=== PATIENT | female | born 1930 | race Caucasian/White ===

== ENCOUNTER 2017-10-28 12:15 | Emergency (ER) | payer MEDICARE ==
[2017-10-28 12:42] LABS: BASO % 0.1 % (0-6); EOS % 0.9 % (0-6); GRAN % 70.4 % (47-80); HEMATOCRIT 46.1 % (35.0-47.0); LYMPH % 20.4 % (16-45); MEAN CELL VOLUME 86.3 fl (81-97); MEAN CORPUSCULAR HEMOGLOBIN 28.1 pg (27-33); MEAN CORPUSCULAR HGB CONC 32.5 g/dl (32-36); MEAN PLATELET VOLUME 10.5 fl (7.4-10.4); MONO % 8.2 % (0-9); PLATELET COUNT 299 K/uL (130-400); RED BLOOD COUNT 5.34 M/uL (3.80-5.40); RED CELL DISTRIBUTION WIDTH 13.7 % (11.5-14.5); WHITE BLOOD COUNT W/O DIFF 7.7 K/uL (4.2-12.2)
--- NOTE | 2017-10-28 12:47 | Emergency Department Record ---
History of Present Illness - General Chief complaint: Weakness Stated complaint: LT SIDE WEAKNESS Time Seen by Provider: 10/28/17 12:31 Source: Patient, RN notes reviewed Mode of Arrival: Ambulatory - History of Present Illness Initial comments: left arm and left leg weakness and left facial droop which started two days ago. PMH hypertension and her Primary is Kya Seals but hasn't seen her yet. Onset/Timin -: Days(s) Location: [facility] Severity: Mild Consistency: Constant Improves with: None Worsens with: None Associated Symptoms: Denies other symptoms - [place] Coma Scale Eye Response: (4) Open spontaneously Motor Response: (6) Obeys commands Verbal Response: (5) Oriented [place] Total: 15 - Symptoms of Stroke Onset of Symptoms Date: 10/26/17 Symptoms of stroke: Muscle Weakness - Related Data Allergies Allergy/AdvReac Type Severity Reaction Status Date / Time enalapril maleate Allergy Severe ANAPHYLAXIS Verified 10/28/17 12:18 [From Vasotec] enalaprilat dihydrate Allergy Severe ANAPHYLAXIS Verified 10/28/17 12:18 [From Vasotec] Travel Screening - Travel/Exposure Within Last 30 Days Have you traveled within the last 30 days?: No - Travel/Exposure Within Last Year Have you traveled outside the [place] in the last year?: No - Additonal Travel Details Have you been exposed to anyone with a communicable illness?: No - Travel Symptoms Symptom Screening: None Review of Systems Reviewed: No additional complaints except as noted below Constitutional: Reports: As per HPI, Weakness (left arm and left leg). Denies: Chills, Fever, Malaise, Night sweats, Weight change Eyes: Reports: As per HPI. Denies: Eye discharge, Eye pain, Photophobia, Vision change ENT: Reports: As per HPI. Denies: Congestion, Dental pain, Ear pain, Epistaxis , Hearing loss, Throat pain Respiratory: Reports: As per HPI. Denies: Cough, Dyspnea, Hemoptysis, Stridor, Wheezes Cardiovascular: Reports: As per HPI. Denies: Arrhythmia, Chest pain, Dyspnea on exertion, Edema, Murmurs, Orthopnea, Palpitations, Paroxysmal nocturnal dyspnea, Rheumatic Fever, Syncope Endocrine: Reports: As per HPI. Denies: Fatigue, Heat or cold intolerance, Polydipsia, Polyuria Gastrointestinal: Reports: As per HPI. Denies: Abdominal pain, Constipation, Diarrhea, Hematemesis, Hematochezia, Melena, Nausea, Vomiting Genitourinary: Reports: As per HPI. Denies: Abnormal menses, Discharge, Dyspareunia, Dysuria, Frequency, Hematuria, Incontinence, Retention, Urgency Musculoskeletal: Reports: As per HPI. Denies: Arthralgia, Back pain, Gout, Joint swelling, Myalgia, Neck pain Skin: Reports: As per HPI. Denies: Bruising, Change in color, Change in hair/ nails, Lesions, Pruritus, Rash Neurological: Reports: As per HPI. Denies: Abnormal gait, Confusion, Headache, Numbness, Paresthesias, Seizure, Tingling, Tremors, Vertigo, Weakness Psychiatric: Reports: As per HPI. Denies: Anxiety, Auditory hallucinations, Depression, Homicidal thoughts, Suicidal thoughts, Visual hallucinations Hematological/Lymphatic: Reports: As per HPI. Denies: Anemia, Blood Clots, Easy bleeding, Easy bruising, Swollen glands Past Medical History - SOCIAL HISTORY Smoking Status: Never smoker Alcohol Use: None Drug Use: None - RESPIRATORY Hx Respiratory Disorders: No - CARDIOVASCULAR Hx Cardio Disorders: Yes Hx Hypertension: Yes Comment:: murmur - NEURO Hx Neuro Disorders: No - GI Hx GI Disorders: No - Hx Genitourinary Disorders: No - ENDOCRINE Hx Endocrine Disorders: No - MUSCULOSKELETAL Hx Musculoskeletal Disorders: Yes Hx Arthritis: Yes (generalized) - PSYCH Hx Psych Problems: No - HEMATOLOGY/ONCOLOGY Hx Hematology/Oncology Disorders: No Family Medical History Any Significant Family History?: Yes Hx Cancer: Mother, Grandparents Hx Heart Disease: Mother, Children Physical Exam - General General Appearance: Alert, Oriented x3, Cooperative, No acute distress - Head Head exam: Other (left facial droop) - Eye Eye exam: Normal appearance, PERRL Pupils: Normal accommodation - ENT ENT exam: Normal exam, Mucous membranes moist, Normal external ear exam, Normal orophraynx, TM's normal bilaterally Ear exam: Normal external inspection. negative: External canal tenderness Nasal Exam: Normal inspection. negative: Discharge, Sinus tenderness Mouth exam: Normal external inspection, Tongue normal Teeth exam: Normal inspection. negative: Dental caries Throat exam: Normal inspection. negative: Tonsillar erythema, Tonsillar exudate - Neck Neck exam: Normal inspection, Full ROM. negative: Tenderness - Respiratory Respiratory exam: Normal lung sounds bilaterally. negative: Respiratory distress - Cardiovascular Cardiovascular Exam: Regular rate, Normal rhythm, Normal heart sounds - GI/Abdominal GI/Abdominal exam: Soft, Normal bowel sounds. negative: Tenderness - Rectal Rectal exam: Deferred - exam: Deferred - Extremities Extremities exam: Normal inspection, Full ROM, Normal capillary refill, Other ( weakness left arm and leg). negative: Tenderness - Back Back exam: Reports: Normal inspection, Full ROM. Denies: Muscle spasm, Rash noted, Tenderness - Neurological Neurological exam: Alert, Normal gait, Oriented X3, Reflexes normal - Psychiatric Psychiatric exam: Normal affect, Normal mood - Skin Skin exam: Dry, Intact, Normal color, Warm Course Vital Signs 10/28/17 12:20 Temperature 98.2 F Pulse Rate 73 Respiratory 20 Rate Blood Pressure 203/113 Pulse Ox 97 - Reevaluation(s) Reevaluation #1: discussed case with Dr. Greer her NIH now is 2 left facial droop and slurred speech 10/28/17 14:33 Reevaluation #2: Transfer to [facility] to Dr. Greer 10/28/17 14:34 10/28/17 14:34 Medical Decision Making - Data Complexity MDM Data: Labs Ordered and/or Reviewed, X-Ray Ordered and/or Reviewed (chest xray small left pleural effussion, CT head No acute bleed or signs of infarction ) - Lab Data Result diagrams: 10/28/17 12:25 10/28/17 12:25 Disposition Clinical Impression: CVA (cerebral vascular accident) Qualifiers: CVA mechanism: unspecified Qualified Code(s): I63.9 - Cerebral infarction, unspecified Disposition: Acute Care Hospital Transfer Condition: (2) Stable Forms: Patient Portal Access Time of Disposition: 14:35 Quality - Quality Measures Quality Measures: N/A - Blood Pressure Screening Does Patient Have Any of the Following: No, Active Dx of HTN Blood Pressure Classification: Hypertensive Reading Systolic Measurement: 203 Diastolic Measurement: 113 Screening for High Blood Pressure: Patient Exclusion, Hx of HTN [G9744]
[2017-10-28 13:08] LABS: GLUCOSE,RANDOM 123 mg/dL (74-109)
[2017-10-28 13:09] LABS: BLOOD UREA NITROGEN 13 mg/dL (8-23); CREATININE 0.5 mg/dL (0.5-0.9); EST GLOMERULAR FILTRATION RATE > 60 mL/min
--- NOTE | 2017-10-29 08:55 | RADIOLOGY REPORT ---
EXAM: CHEST, TWO VIEWS HISTORY: WEAKNESS LEFT SIDE OF BODY FOR TWO DAYS. TECHNIQUE: PA and lateral views of the chest were obtained. Comparison: None. Hand dominance: Right. FINDINGS: The heart size is at about the upper limits of normal. Small left pleural effusion. No definite acute infiltrate is seen and no pneumothorax evident. There is probably some minor streaky atelectasis or infiltrate in the left base as well. There is a mild kyphoscoliosis convexed to the right. IMPRESSION: 1. SMALL LEFT PLEURAL EFFUSION WITH SOME MINOR STREAKY ATELECTASIS OR INFILTRATE IN THE LEFT BASE. 2. THE HEART SIZE IS AT ABOUT THE UPPER LIMITS OF NORMAL. 3. THORACIC CURVE TO THE RIGHT WITH SOMEWHAT EXAGGERATED KYPHOSIS WELL. JOB NUMBER: [id number] MTDD
--- NOTE | 2017-10-29 09:18 | CT SCAN REPORT ---
EXAM: HEAD CT WITHOUT CONTRAST HISTORY: WEAKNESS LEFT SIDE OF BODY, NEW ONSET. TECHNIQUE: Axial CT scan of the head was performed without IV contrast. Comparison: None. Hand dominance: Right. FINDINGS: No definite acute intracranial hemorrhage identified. No focal mass effect or midline shift apparent. No definite acute infarct or intracranial mass lesion seen. There is moderate generative atrophy with chronic appearing deep white matter changes bilaterally, nonspecific, but likely representing some chronic small vessel deep white matter ischemic disease. There is likely an old infarct in the region of the left caudate nucleus and anterior limb of the left internal capsule. There is probably also a small chronic infarct in the region of the anterior limb of the right internal capsule. Small cyst or polyp in the floor of the left maxillary antrum. IMPRESSION: 1. GENERALIZED ATROPHY WITH CHRONIC APPEARING DEEP WHITE MATTER CHANGES BILATERALLY. 2. SMALL OLD INFARCTS IN THE REGION OF THE ANTERIOR LIMB OF THE INTERNAL CAPSULES BILATERALLY WELL THE HEAD OF THE CAUDATE NUCLEUS ON THE LEFT. 3. NO ACUTE INTRACRANIAL HEMORRHAGE OR FOCAL MASS EFFECT EVIDENT. JOB NUMBER: [id number] MTDD
== END 2017-10-28 18:14 | disposition short-term general hospital (02) ==
LOC: ER 12:15
DX: I63.9 Cerebral infarction, unspecified (principal); J90 Pleural effusion, not elsewhere classified; I10 Essential (primary) hypertension
CPT/HCPCS: 70450; 71046; 80048; 84484; 85025; 85730; 93005; 93010; 99285

== ENCOUNTER 2018-05-12 17:02 | Emergency (ER) | payer MEDICARE ==
--- NOTE | 2018-05-12 17:48 | Emergency Department Record ---
History of Present Illness - General Chief Complaint: Hypertension Stated Complaint: HIGH BLOOD PRESSURE,LIGHT HEADED,POUNDIN HEADACHE Time Seen by Provider: 05/12/18 17:41 Source: Patient Mode of Arrival: Wheelchair - History of Present Illness Initial Comments: patient was dizzy and daughter states dizzy on and off for one week. No chest pressure or chest pain. BP was high and she took one benadryl because she thought it might be allergies. Patient had Aortic valve surgery January 2018 at [facility] by Dr. Lilly and she sees [facility]. Loop recorder in place and she said it went off one week ago. MD Complaint: Dizziness Onset/Timin -: Days(s) Timing: Constant Description: Lightheadedness, Off-balance History of Same: Yes Severity: Mild Improves With: Nothing Worsens With: Nothing - [place] Coma Scale Eye Response: (4) Open spontaneously Motor Response: (6) Obeys commands Verbal Response: (5) Oriented [place] Total: 15 - Related Data Allergies Allergy/AdvReac Type Severity Reaction Status Date / Time enalapril maleate Allergy Severe ANAPHYLAXIS Verified 05/12/18 17:24 [From Vasotec] enalaprilat dihydrate Allergy Severe ANAPHYLAXIS Verified 05/12/18 17:24 [From Vasotec] Travel Screening - Travel/Exposure Within Last 30 Days Have you traveled within the last 30 days?: No - Travel/Exposure Within Last Year Have you traveled outside the [place] in the last year?: No - Additonal Travel Details Have you been exposed to anyone with a communicable illness?: No - Travel Symptoms Symptom Screening: None Review of Systems Reviewed: No additional complaints except as noted below Constitutional: Reports: As per HPI. Denies: Chills, Fever, Malaise, Night sweats, Weakness, Weight change Eyes: Reports: As per HPI. Denies: Eye discharge, Eye pain, Photophobia, Vision change ENT: Reports: As per HPI. Denies: Congestion, Dental pain, Ear pain, Epistaxis , Hearing loss, Throat pain Respiratory: Reports: As per HPI. Denies: Cough, Dyspnea, Hemoptysis, Stridor, Wheezes Cardiovascular: Reports: As per HPI. Denies: Arrhythmia, Chest pain, Dyspnea on exertion, Edema, Murmurs, Orthopnea, Palpitations, Paroxysmal nocturnal dyspnea, Rheumatic Fever, Syncope Endocrine: Reports: As per HPI. Denies: Fatigue, Heat or cold intolerance, Polydipsia, Polyuria Gastrointestinal: Reports: As per HPI. Denies: Abdominal pain, Constipation, Diarrhea, Hematemesis, Hematochezia, Melena, Nausea, Vomiting Genitourinary: Reports: As per HPI. Denies: Abnormal menses, Discharge, Dyspareunia, Dysuria, Frequency, Hematuria, Incontinence, Retention, Urgency Musculoskeletal: Reports: As per HPI. Denies: Arthralgia, Back pain, Gout, Joint swelling, Myalgia, Neck pain Skin: Reports: As per HPI. Denies: Bruising, Change in color, Change in hair/ nails, Lesions, Pruritus, Rash Neurological: Reports: As per HPI. Denies: Abnormal gait, Confusion, Headache, Numbness, Paresthesias, Seizure, Tingling, Tremors, Vertigo, Weakness Psychiatric: Reports: As per HPI. Denies: Anxiety, Auditory hallucinations, Depression, Homicidal thoughts, Suicidal thoughts, Visual hallucinations Hematological/Lymphatic: Reports: As per HPI. Denies: Anemia, Blood Clots, Easy bleeding, Easy bruising, Swollen glands Past Medical History - SOCIAL HISTORY Smoking Status: Never smoker Alcohol Use: None Drug Use: None - RESPIRATORY Hx Respiratory Disorders: No - CARDIOVASCULAR Hx Cardio Disorders: Yes Hx Hypertension: Yes Comment:: murmur, valve replaced,loop recorder - NEURO Hx Neuro Disorders: No - GI Hx GI Disorders: No - Hx Genitourinary Disorders: No - ENDOCRINE Hx Endocrine Disorders: No - MUSCULOSKELETAL Hx Musculoskeletal Disorders: Yes Hx Arthritis: Yes (generalized) - PSYCH Hx Psych Problems: No - HEMATOLOGY/ONCOLOGY Hx Hematology/Oncology Disorders: No Family Medical History Any Significant Family History?: Yes Hx Cancer: Mother, Grandparents Hx Heart Disease: Mother, Children Physical Exam - General General Appearance: Alert, Oriented x3, Cooperative, Mild distress - Head Head exam: Normal inspection - Eye Eye exam: Normal appearance, PERRL Pupils: Normal accommodation - ENT ENT exam: Normal exam, Mucous membranes moist, Normal external ear exam, Normal orophraynx, TM's normal bilaterally Ear exam: Normal external inspection. negative: External canal tenderness Nasal Exam: Normal inspection. negative: Discharge, Sinus tenderness Mouth exam: Normal external inspection, Tongue normal Teeth exam: Normal inspection. negative: Dental caries Throat exam: Normal inspection. negative: Tonsillar erythema, Tonsillar exudate - Neck Neck exam: Normal inspection, Full ROM. negative: Tenderness - Respiratory Respiratory exam: Normal lung sounds bilaterally. negative: Respiratory distress - Cardiovascular Cardiovascular Exam: Regular rate, Normal rhythm, Normal heart sounds - GI/Abdominal GI/Abdominal exam: Soft, Normal bowel sounds. negative: Tenderness - Rectal Rectal exam: Deferred - exam: Deferred - Extremities Extremities exam: Normal inspection, Full ROM, Normal capillary refill. negative: Tenderness - Back Back exam: Reports: Normal inspection, Full ROM. Denies: Muscle spasm, Rash noted, Tenderness - Neurological Neurological exam: Alert, Normal gait, Oriented X3, Reflexes normal - Psychiatric Psychiatric exam: Normal affect, Normal mood - Skin Skin exam: Dry, Intact, Normal color, Warm Course Vital Signs 05/12/18 17:28 Temperature 98.6 F Pulse Rate 78 Respiratory 20 Rate Blood Pressure 158/90 Pulse Ox 97 - Reevaluation(s) Reevaluation #1: patient refusing to be transferred to [facility] and risks discussed of and cardiac cripple and she agrees to signing AMA and daughter in the room with her. 05/12/18 19:23 Medical Decision Making - Data Complexity MDM Data: Labs Ordered and/or Reviewed, EKG Ordered and/or Reviewed (NSR , No acute changes ) - Lab Data Result diagrams: 05/12/18 18:35 05/12/18 18:35 Disposition Clinical Impression: Dizzinesses Hypertension Qualifiers: Hypertension type: essential hypertension Qualified Code(s): I10 - Essential ( primary) hypertension Disposition: Home, Self-Care Condition: (1) Good Instructions: Hypertension (ED) Additional Instructions: follow up with her call center assistant tomorrow and her primary Dr. return to ED if worse signed ama Forms: Patient Portal Access Quality - Quality Measures Quality Measures: N/A - Blood Pressure Screening Does Patient Have Any of the Following: No, Active Dx of HTN Blood Pressure Classification: Hypertensive Reading Systolic Measurement: 158 Diastolic Measurement: 90 Screening for High Blood Pressure: Patient Exclusion, Hx of HTN [G9744]
[2018-05-12] MEDS ORDERED: ASPIRIN 81 MG CHEWABLE TABLET PO ONE (18:13)
[2018-05-12 19:11] LABS: BASO % 0.3 % (0-6); EOS % 2.3 % (0-6); GRAN % 70.4 % (47-80); HEMATOCRIT 43.1 % (35.0-47.0); LYMPH % 18.2 % (16-45); MEAN CELL VOLUME 86.4 fl (81-97); MEAN CORPUSCULAR HEMOGLOBIN 28.1 pg (27-33); MEAN CORPUSCULAR HGB CONC 32.5 g/dl (32-36); MEAN PLATELET VOLUME 9.7 fl (7.4-10.4); MONO % 8.8 % (0-9); PLATELET COUNT 290 K/uL (130-400); RED BLOOD COUNT 4.99 M/uL (3.80-5.40); RED CELL DISTRIBUTION WIDTH 13.3 % (11.5-14.5); WHITE BLOOD COUNT W/O DIFF 7.3 K/uL (4.2-12.2)
[2018-05-12 19:25] LABS: BLOOD UREA NITROGEN 20 mg/dL (8-23); CREATININE 0.6 mg/dL (0.5-0.9); EST GLOMERULAR FILTRATION RATE > 60 mL/min
[2018-05-12 19:28] LABS: GLUCOSE,RANDOM 123 mg/dL (74-109); PROTHROMBIN TIME (PATIENT) 10.4 SECONDS (9.5-12.1)
--- NOTE | 2018-05-13 10:13 | RADIOLOGY REPORT ---
EXAM: PORTABLE CHEST HISTORY: DIZZY. TECHNIQUE: AP portable view of the chest was obtained. Comparison: Two view chest dated 12/24/17. FINDINGS: Stable heart size. Apparent implantable loop recorder device again seen overlying the left base. No definite acute infiltrate seen today. Minor blunting of the left lateral costophrenic angle by fluid or thickened pleura. No pneumothorax evident. Thoracic curve to the right. Diffuse osteopenia consistent with osteoporosis. IMPRESSION: 1. NO DEFINITE ACUTE INFILTRATE SEEN. 2. BLUNTING OF THE LEFT LATERAL COSTOPHRENIC ANGLE BY FLUID OR THICKENED PLEURA. 3. IMPLANTABLE LOOP RECORDER DEVICE OVERLYING THE LEFT BASE. JOB NUMBER: [id number] MTDD
== END 2018-05-12 19:32 | disposition home or self-care (01) ==
LOC: ER 17:02
DX: R42 Dizziness and giddiness (principal); R79.89 Other specified abnormal findings of blood chemistry; R51 Headache; I10 Essential (primary) hypertension
CPT/HCPCS: 71045; 80048; 84484; 85025; 85379; 85610; 85730; 93005; 93010; 99284

== ENCOUNTER 2018-12-18 12:03 | Emergency (ER) | payer MEDICARE ==
--- NOTE | 2018-12-18 13:02 | Emergency Department Record ---
History of Present Illness - General Chief complaint: Eye Problem Stated complaint: LT EYE INFECTION Time Seen by Provider: 12/18/18 13:02 Source: Patient, RN notes reviewed Mode of Arrival: Ambulatory - History of Present Illness Initial comments: left lower eyelid styie Onset/Timin -: Days(s) Onset Description: Awoke with symptoms Location: Left eye Place: Home If Injury: None Eye Symptoms: Other Severity: Mild Severity scale (1-10): 1 If Pain, Quality: Other Consistency: Constant Associated Symptoms: None, Fever Treatments Prior to Arrival: None, Other - Related Data Hx Tetanus Toxoid Vaccination: No Year of Tetanus Vaccination: unknown Previous Rx's Medication Instructions Recorded Sulfacetamide Sodium [Bleph-10] 1 - 2 drop AFFEYE QID #5 ml 12/18/18 Allergies Allergy/AdvReac Type Severity Reaction Status Date / Time enalapril maleate Allergy Severe ANAPHYLAXIS Verified 12/18/18 12:08 [From Vasotec] enalaprilat dihydrate Allergy Severe ANAPHYLAXIS Verified 12/18/18 12:08 [From Vasotec] Travel Screening - Travel/Exposure Within Last 30 Days Have you traveled within the last 30 days?: No - Travel/Exposure Within Last Year Have you traveled outside the [place] in the last year?: No - Additonal Travel Details Have you been exposed to anyone with a communicable illness?: No - Travel Symptoms Symptom Screening: None Review of Systems Reviewed: No additional complaints except as noted below Constitutional: Reports: As per HPI. Denies: Chills, Fever, Malaise, Night sweats, Weakness, Weight change Eyes: Reports: As per HPI. Denies: Eye discharge, Eye pain, Photophobia, Vision change ENT: Reports: As per HPI. Denies: Congestion, Dental pain, Ear pain, Epistaxis , Hearing loss, Throat pain Respiratory: Reports: As per HPI. Denies: Cough, Dyspnea, Hemoptysis, Stridor, Wheezes Cardiovascular: Reports: As per HPI. Denies: Arrhythmia, Chest pain, Dyspnea on exertion, Edema, Murmurs, Orthopnea, Palpitations, Paroxysmal nocturnal dyspnea, Rheumatic Fever, Syncope Endocrine: Reports: As per HPI. Denies: Fatigue, Heat or cold intolerance, Polydipsia, Polyuria Gastrointestinal: Reports: As per HPI. Denies: Abdominal pain, Constipation, Diarrhea, Hematemesis, Hematochezia, Melena, Nausea, Vomiting Genitourinary: Reports: As per HPI. Denies: Abnormal menses, Discharge, Dyspareunia, Dysuria, Frequency, Hematuria, Incontinence, Retention, Urgency Musculoskeletal: Reports: As per HPI. Denies: Arthralgia, Back pain, Gout, Joint swelling, Myalgia, Neck pain Skin: Reports: As per HPI. Denies: Bruising, Change in color, Change in hair/ nails, Lesions, Pruritus, Rash Neurological: Reports: As per HPI. Denies: Abnormal gait, Confusion, Headache, Numbness, Paresthesias, Seizure, Tingling, Tremors, Vertigo, Weakness Psychiatric: Reports: As per HPI. Denies: Anxiety, Auditory hallucinations, Depression, Homicidal thoughts, Suicidal thoughts, Visual hallucinations Hematological/Lymphatic: Reports: As per HPI. Denies: Anemia, Blood Clots, Easy bleeding, Easy bruising, Swollen glands Past Medical History - SOCIAL HISTORY Smoking Status: Never smoker Alcohol Use: None Drug Use: None - RESPIRATORY Hx Respiratory Disorders: No - CARDIOVASCULAR Hx Cardio Disorders: Yes Hx Hypertension: Yes Comment:: murmur, valve replaced,loop recorder - NEURO Hx Neuro Disorders: No - GI Hx GI Disorders: No - Hx Genitourinary Disorders: No - ENDOCRINE Hx Endocrine Disorders: No - MUSCULOSKELETAL Hx Musculoskeletal Disorders: Yes Hx Arthritis: Yes (generalized) - PSYCH Hx Psych Problems: No - HEMATOLOGY/ONCOLOGY Hx Hematology/Oncology Disorders: No Family Medical History Any Significant Family History?: Yes Hx Cancer: Mother, Grandparents Hx Heart Disease: Mother, Children Physical Exam - General General Appearance: Alert, Oriented x3, Cooperative, No acute distress - Head Head exam: Normal inspection - Eye Eye exam: Normal appearance, PERRL Pupils: Normal accommodation - ENT ENT exam: Normal exam, Mucous membranes moist, Normal external ear exam, Normal orophraynx, TM's normal bilaterally Ear exam: Normal external inspection. negative: External canal tenderness Nasal Exam: Normal inspection. negative: Discharge, Sinus tenderness Mouth exam: Normal external inspection, Tongue normal Teeth exam: Normal inspection. negative: Dental caries Throat exam: Normal inspection. negative: Tonsillar erythema, Tonsillar exudate - Neck Neck exam: Normal inspection, Full ROM. negative: Tenderness - Respiratory Respiratory exam: Normal lung sounds bilaterally. negative: Respiratory distress - Cardiovascular Cardiovascular Exam: Regular rate, Normal rhythm, Normal heart sounds - GI/Abdominal GI/Abdominal exam: Soft, Normal bowel sounds. negative: Tenderness - Rectal Rectal exam: Deferred - exam: Deferred - Extremities Extremities exam: Normal inspection, Full ROM, Normal capillary refill. negative: Tenderness - Back Back exam: Reports: Normal inspection, Full ROM. Denies: Muscle spasm, Rash noted, Tenderness - Neurological Neurological exam: Alert, Normal gait, Oriented X3, Reflexes normal - Psychiatric Psychiatric exam: Normal affect, Normal mood - Skin Skin exam: Dry, Intact, Normal color, Warm Course Vital Signs 12/18/18 12:13 Temperature 98 F Pulse Rate 96 H Respiratory 20 Rate Blood Pressure 194/68 Pulse Ox 95 Disposition Clinical Impression: Kavitha Qualifiers: Laterality: left Eyelid: lower Qualified Code(s): H00.015 - Hordeolum externum left lower eyelid Disposition: Home, Self-Care Condition: (1) Good Instructions: Kavitha (ED) Additional Instructions: warm compresses 6 times a day follow up with family Dr in one week Prescriptions: Sulfacetamide Sodium [Bleph-10] 1 - 2 drop AFFEYE QID #5 ml Forms: Patient Portal Access Time of Disposition: 13:27 Quality - Quality Measures Quality Measures: N/A - Blood Pressure Screening Does Patient Have Any of the Following: No, Active Dx of HTN Blood Pressure Classification: Hypertensive Reading Systolic Measurement: 194 Diastolic Measurement: 68 Screening for High Blood Pressure: Patient Exclusion, Hx of HTN [G9744]
== END 2018-12-18 13:37 | disposition home or self-care (01) ==
LOC: ER 12:03
DX: H00.015 Hordeolum externum left lower eyelid (principal)
CPT/HCPCS: 99282